=== PATIENT | female | born 1995 | race Two or more races ===

== ENCOUNTER 2023-04-21 10:24 | Outpatient (AMB) | payer BC, SELFPAY ==
--- NOTE | 2023-04-21 11:35 | AM.OFFWIN_ITS ---
Intake Vital Signs 04/21/23 11:44 Height 5 ft 5 in Weight 288 lb BMI 47.9 BP 120/64 Blood Pressure Location Rt brachial Position Sitting Pulse 96 Pulse Source Pulse Oximeter Temp 96.7 F L Temp Source Temporal Artery Scan Pulse Oximetry (%) 98 Oxygen Delivery Method Room Air Intake Visit Reasons: EST/cyst right side [phone] Intake Note: pt is here today for cyst rt side of buttocks started this morning Allergies No Known Allergies Allergy (Verified 04/21/23 11:36) Do you need a note to return to daycare/school/sports/work: Yes HPI EST/cyst right side [phone] HPI Details 28 year old female patient presents toda y with a 3-4 day history of a sore on her right buttock. She states this is very tender and warm, and is starting drain a bloody fluid. She denies any fever but has felt a little hot and cold . She denies any trauma to this area of her buttock and states the sore came about randomly. Review of Systems Const All systems reviewed & are unremarkable except as noted in HPI and below Physical Exam Vital Signs: Last Vital Signs Temp 96.7 F L 04/21/23 11:44 Pulse 96 04/21/23 11:44 BP 120/64 04/21/23 11:44 Pulse Ox 98 04/21/23 11:44 Oxygen Delivery Method Room Air 04/21/23 11:44 BMI result Body Mass Index 47.9 Const General: cooperative and healthy appearing Nutritional Appearance: obese Resp Effort & Inspection: normal respiratory effort Auscultation: clear to auscultation bilaterally Cardio Jugular venous distension: no JVD Palpation: normal PMI Rate: regular rate Rhythm: regular rhythm Skin Other: approx 1.5cm in diameter round/open area on the lower aspect of her right buttock. This is draining a small amount of purosanguineous fluid. Indurated area surrounding open area extending about 2cm circumferentially with associate warmth/erythema/tenderness to palpation. Extrem General: Yes capillary refill normal and Yes no clubbing, cyanosis or edema Psych Appearance: grossly normal Mental Status: mental status grossly normal Speech and movement: Normal speech and movement present Assessment & Plan Assessment & Plan (1) Abscess of right buttock: Code(s): L02.31 - Cutaneous abscess of buttock Plan: Draining abscess on right buttock with surrounding induration. I obtained a wound culture of the fluid. I then cleansed the area with NS and applied a non- adherent dressing. We reviewed care of this area and I am going to start her on course of antibiotics today - Bactrim for MRSA coverage. We reviewed indications, use, possible s/e of these. We discussed at length the necessity of going to the emergency department if her symptoms worsen in any way, including increased size of abscess, increased pain/drainage, or any development of fever, or if it does not start to improve with treatment. She verbalizes understanding and agrees to plan. Work note provided. Orders: Orders Routine Culture w Gram Stain Today L02.31 - Cutaneous abscess of buttock Medications: New sulfamethoxazole-trimethoprim 800-160 mg 1 tab PO BID 20 tabs 0RF 10 days L02.31 - Cutaneous abscess of buttock Coding Level of Care Code Est Pt Level 3 (83663) Diagnoses Abscess of right buttock L02.31
[2023-04-21 11:44] VITALS: BP 120/64; PULSE 96; TEMP 35.9; O2SAT 98; BMI 47.9
== END 2023-04-21 12:35 | disposition home or self-care (01) ==
PROVIDERS: PCP Physician Assistant; Visit Provider Nurse Practitioner Family
DX: L02.31 Cutaneous abscess of buttock (principal)
CPT/HCPCS: 99213

== ENCOUNTER 2023-04-21 12:23 | Outpatient (REF) | payer BC, SELFPAY | END 2023-04-21 12:24 | disposition home or self-care (01) | LOC: HO.LAB 12:23 | PROVIDERS: Visit Provider Nurse Practitioner Family | DX: L02.31 Cutaneous abscess of buttock (principal) | CPT/HCPCS: 87070; 87077; 87186; 87205 ==

== ENCOUNTER 2023-06-27 08:19 | Outpatient (AMB) | payer BC, SELFPAY ==
[2023-06-27 08:40] VITALS: BP 142/88; PULSE 115; TEMP 37.4; O2SAT 97; BMI 47.8
--- NOTE | 2023-06-27 08:40 | AM.OFFWIN_ITS ---
Intake Vital Signs 06/27/23 08:40 Height 5 ft 5 in Weight 287 lb BMI 47.8 BP 142/88 H Blood Pressure Location Lt brachial Position Sitting Pulse 115 H Pulse Source Pulse Oximeter Temp 99.4 F Temp Source Temporal Artery Scan Pulse Oximetry (%) 97 Oxygen Delivery Method Room Air Intake Visit Reasons: EP headache sinus pressure [phone] Intake Note: pt is here today for headache sinus pressure started yesterday Patient Tobacco Use Status: Never used Tobacco Allergies No Known Allergies Allergy (Verified 06/27/23 08:40) Do you need a note to return to daycare/school/sports/work: Yes HPI HPI Comments History of Present Illness Details 28 y/o female who presents to walk in [facility] with c/o Sinus pressure and headaches since yesterday. Reports low grade fevers at home. Denies recent sick contacts. [facility] Social History Patient Tobacco Use Status: Never used Tobacco Review of Systems Const All systems reviewed & are unremarkable except as noted in HPI and below Physical Exam Vital Signs: Last Vital Signs Temp 99.4 F 06/27/23 08:40 Pulse 115 H 06/27/23 08:40 BP 142/88 H 06/27/23 08:40 Pulse Ox 97 06/27/23 08:40 Oxygen Delivery Method Room Air 06/27/23 08:40 BMI result Body Mass Index 47.8 Const General: no acute distress and ill appearing HEENT Head: Yes normocephalic Ears: external ears normal and TM's normal bilaterally General nose exam: Abnormal mucous membranes and turbinates present boggy and erythematous Face and sinus: Yes sinuses nontender Mouth: moist mucous membranes Throat: Yes tonsils normal and Yes uvula midline Resp Effort & Inspection: normal respiratory effort Auscultation: clear to auscultation bilaterally Cardio Rate: regular rate Rhythm: regular rhythm Assessment & Plan Assessment & Plan (1) Acute rhinosinusitis: Code(s): J01.90 - Acute sinusitis, unspecified Plan: - Rest, warm fluids - Acetaminophen for pain relief Orders: Orders SARS-CoV2/FLU/RSV Today J01.90 - Acute sinusitis, unspecified Medications: New oseltamivir (Tamiflu) 75 mg PO BID 5 days 10 caps 0RF Coding Level of Care Code Est Pt Level 3 (00616) Diagnoses Acute rhinosinusitis J01.90 Time Spent (min) 15
== END 2023-06-27 09:11 | disposition home or self-care (01) ==
PROVIDERS: PCP Physician Assistant; Visit Provider Nurse Practitioner Family
DX: J01.90 Acute sinusitis, unspecified (principal)
CPT/HCPCS: 99213

== ENCOUNTER 2023-06-27 12:26 | Outpatient (REF) | payer BC, SELFPAY ==
[2023-06-27 13:09] LABS: Influenza A PCR POSITIVE (Negative); Influenza B PCR NEGATIVE (Negative); Resp Syncy Virus RNA Qual PCR NEGATIVE (Negative); SARS COV2 PCR INHOUSE NEGATIVE (Negative)
== END 2023-06-27 12:27 | disposition home or self-care (01) ==
LOC: HO.LNP 12:26
PROVIDERS: Visit Provider Nurse Practitioner Family
DX: Z11.52 Encounter for screening for COVID-19 (principal); Z20.822 Contact with and (suspected) exposure to COVID-19; J01.90 Acute sinusitis, unspecified
CPT/HCPCS: 0241U